=== PATIENT | male | born 1995 | race African-American/Black ===

== ENCOUNTER 2023-02-15 09:59 | Emergency (ER) | payer SELFPAY ==
--- NOTE | ~2023-02-15 | XR_ITS ---
EXAMINATION: XR hand LT min 3V DATE: 02/15/2023 10:24 INDICATION: Left hand pain. TECHNIQUE: 3 views of left hand were obtained. COMPARISON: Left hand second digit radiographs 09/18/2019 FINDINGS: Bone alignment is normal. There is a nondisplaced stellate fracture of diaphysis of fourth proximal phalanx. 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 Joint spaces are normal. IMPRESSION: 1. Nondisplaced stellate fracture of diaphysis of fourth proximal phalanx. Reviewed, dictated and finalized at location A.
--- NOTE | 2023-02-15 10:11 | ED.WOUNDLAC ---
HPI - Wound/Laceration General Chief Complaint: Wound/Laceration Stated Complaint: Lac on left palm Source: patient and RN notes reviewed History of Present Illness HPI narrative: 27-year-old male [facility] complaining left hand injury. Patient stated yesterday he was using a box sorter yesterday when he accidentally struck himself with the cutter and jerked back with his left arm and struck the back of his hand on a piece of wood injury seen. Patient is complaining of left hand pain specifically to his left ring finger. Patient denies any other injuries. Patient cannot make a complete fist with his left hand due to the pain. Patient rates her pain at 10/10 on a scale of 1-10. Patient tetanus shot is not up-to-date. Patient has a small superficial laceration to the left palm measuring about 2 cm. Related Data Allergies Allergy/AdvReac Type Severity Reaction Status Date / Time No Known Allergies Allergy Verified 02/15/23 10:04 Review of Systems Review of Systems: CONSTITUTIONAL: Denies fever, chills, or sweats. EYES: Denies visual changes, redness, or discharge. ENT: Denies otalgia and sore throat CARDIOVASCULAR: Denies chest pain, palpitations, or edema. RESPIRATORY: Denies cough or dyspnea. GASTROINTESTINAL: Denies abdominal pain, nausea, vomiting, or diarrhea. GENITOURINARY: Denies dysuria or hematuria. SKIN: Denies rash or itching. Positive for wound to left palm. MUSCULOSKELETAL: Positive for left hand pain. NEUROLOGIC: Denies headache, numbness, or weakness. Pertinent positives per HPI. PMFSH Comments At the time of my signature, I reviewed and agree with the nursing past medical, surgical, social, and family history. There is no relevant family history pertinent to the patient complaint. Exam Narrative: GENERAL: This is a well-nourished, well-developed patient, in no apparent distress. HEAD: normocephalic, atraumatic. EYES: Sclera clear/white. Vision is grossly intact. EARS: External ears normal, auditory canals clear and without drainage, TMs normal without perforation. Hearing grossly intact. NOSE: External nose normal with no obvious nasal discharge, nares without redness, no rhinorrhea. THROAT: Mucous membranes moist, posterior pharynx clear. NECK: Neck supple, non-tender without lymphadenopathy, masses or thyromegaly. CARDIOVASCULAR: Regular rate and rhythm without murmurs, gallops, or rubs. RESPIRATORY: Clear to auscultation. Breath sounds equal bilaterally. No wheezes, rales, or rhonchi. GASTROINTESTINAL: Abdomen soft, non-tender, nondistended. Bowel sounds are active. No hepato-splenomegaly, or palpable masses. No guarding. SKIN: There is a small superficial laceration to the left palmar aspect of the left hand. The wound measures approximately 2 cm. NEURO: awake, alert, and oriented to person, place and time. There were no obvious focal neurologic abnormalities. EXTREMITIES: No clubbing, cyanosis, or edema. There is point tenderness to the left ring finger and to the dorsal aspect of the left hand. Patient unable to make a full fist with their left hand, patient able to make an okay sign and thumbs-up. BACK: Nontender without deformity or crepitus. No flank tenderness. Course Course Level of Care: [facility] Visit Vital Signs Vital signs: Vital Signs Temperature 98.2 F 02/15/23 10:12 Pulse Rate 78 02/15/23 10:12 Respiratory Rate 16 02/15/23 10:12 Blood Pressure 138/69 02/15/23 10:12 Pulse Oximetry 99 02/15/23 10:12 Oxygen Delivery Room Air 02/15/23 10:12 Temperature 98.2 F 02/15/23 10:12 Pulse Rate 78 02/15/23 10:12 Respiratory Rate 16 02/15/23 10:12 Blood Pressure 138/69 02/15/23 10:12 Pulse Oximetry 99 02/15/23 10:12 Oxygen Delivery Room Air 02/15/23 10:12 Reviewed MDM - Wound/Laceration MDM Narrative Medical decision making narrative: Use the RICE method at home. May take ibuprofen and/or Tylenol if
[2023-02-15 10:12] VITALS: BP 138/69; PULSE 78; RESP 16; TEMP 36.8; O2SAT 99
[2023-02-15] MEDS: TETANUS,DIPHTHERIA,AC PERTUSSIS ADULT (0.5 ML) BOOSTRIX IM (10:33)
[2023-02-15] MEDS: IBUPROFEN 600 MG TABLET PO (10:52)
== END 2023-02-15 10:55 | disposition home or self-care (01) ==
PROVIDERS: Emergency Provider Nurse Practitioner Family
DX: S62.645A Nondisplaced fracture of proximal phalanx of left ring finger, initial encounter for closed fracture (principal); W22.8XXA Striking against or struck by other objects, initial encounter; S61.412A Laceration without foreign body of left hand, initial encounter; W26.8XXA Contact with other sharp object(s), not elsewhere classified, initial encounter; Z23 Encounter for immunization
CPT/HCPCS: 29130; 73130; 90471; 90715; 99213; A9270; G0463